=== PATIENT | male | born 1985 | race Caucasian/White ===

== ENCOUNTER 2017-07-15 21:53 | Emergency (ER) | payer SELFPAY ==
[2017-07-15] MEDS ORDERED: Sodium Chloride 0.9% 10 ML Syringe FLUSH PRN (21:55)
[2017-07-15] MEDS ORDERED: Sodium Chloride 0.9% 2.5 ML Syringe FLUSH PRN (21:55)
[2017-07-15] MEDS ORDERED: Nitroglycerin 0.4 MG Tab.SL SL PRN (22:03)
[2017-07-15] MEDS ORDERED: Aspirin 81 MG Tab.Chew PO ONE (22:03)
--- NOTE | 2017-07-15 22:03 | EDM.PDOC ---
ED HPI GENERAL MEDICAL PROBLEM - General Chief Complaint: Cardiovascular Problem Stated Complaint: CHEST PAIN Time Seen by Provider: 07/15/17 21:54 - History of Present Illness INITIAL COMMENTS - FREE TEXT/NARRATIVE: HISTORY AND PHYSICAL: History of present illness: The patient is a 31-year-old male who follows in our family practice clinic and has no stated medical history and presents with several days of feeling like his heart is racing and chest tightness which has been continuous. Patient says he is able to sleep at night and it does not wake him from sleep but from the moment he wakes up to the moment he goes to bed he feels like his heart is going to fast not skipping beats, and he has tightness. He currently rates the tightness is a 4/10. It does not change with activity and he says he has a dry hacking kind of cough. He's had no fevers no abdominal pain no vomiting or diarrhea no diaphoresis no leg pain or swelling. Patient has elevated blood pressure here on arrival and when I asked him that he says he's never had that before. The patient does not smoke cigarettes nor does he do any drugs but he does state that he drinks 6 beers every night to help him go to sleep. He says he doesn't hydrate very well during the day and he on the go eating a lot of junk and fast foods. Patient has no significant family history for cardiac disease. Please note that on my evaluation the patient is on a heart monitor and his heart rate is in the 70s but when I ask him what he is currently feeling he says he feels like his heart is racing Review of systems: As per history of present illness and below otherwise all systems reviewed and negative. Past medical history: As per history of present illness and as reviewed below otherwise noncontributory. Surgical history: As per history of present illness and as reviewed below otherwise noncontributory. Social history: No reported history of drug or alcohol abuse. Family history: As per history of present illness and as reviewed below otherwise noncontributory. Physical exam: Gen.: Well-developed well-nourished male who is nontoxic and overweight and vital signs of the note by me. Patient does seem somewhat anxious on my evaluation and does ramble with his speech a bit but he is able to focus and answer questions. HEENT: Atraumatic, normocephalic, pupils reactive, negative for conjunctival pallor or scleral icterus, mucous membranes tacky, throat clear, neck supple, nontender, trachea midline. Lungs: Clear to auscultation, breath sounds equal bilaterally, chest nontender. No worker breathing or sensory muscle use no wheezing or stridor Heart: S1S2, regular, negative for clicks, rubs, or JVD. My evaluation the patient's heart rate is in the 70s although he tells me on my examination that he feels like his heart is going fast Abdomen: Soft, nondistended, nontender. Negative for masses or hepatosplenomegaly. NABS Pelvis: Stable nontender. Genitourinary: Deferred. Rectal: Deferred. Extremities: Atraumatic, negative for cords or calf pain. Neurovascular unremarkable. No pedal edema or leg asymmetry Neuro: Awake, alert, oriented. Cranial nerves II through XII unremarkable. Cerebellum unremarkable. Motor and sensory unremarkable throughout. Exam nonfocal. The patient does exhibit some tremulousness Skin: Normal turgor no evidence of any overt rashes or lesions and there is no diaphoresis Diagnostics: EKG CBC CMP INR troponin TSH chest x-ray magnesium level UA UDS Therapeutics: IV O2 monitor IV fluids aspirin sublingual nitroglycerin Ativan nitroglycerin paste topically 2220: Chest pain is completely gone after one sublingual nitroglycerin and patient is much calmer after the Ativan. We'll place Nitropaste and we will continue to monitor the patient's testing results Patient has been pain-free since he has been here and he says he doesn't feel as anxious. I reviewed all testing results with him and have offered him observation admission as it is unclear if this was truly a cardiac event or just anxiety. The patient is refusing admission at this time and he is awake alert and competent. I told him that he needs to follow-up with Dr. Tee in the clinic and he needs to avoid drinking beer at night. He understands the risks involved with refusing admission and accepts them. Impression: Palpitations and chest pain, ACS versus anxiety, refusing admission History of daily alcohol use Definitive disposition and diagnosis pending all the above. - Related Data Allergies Allergy/AdvReac Type Severity Reaction Status Date / Time Penicillins Allergy Cannot Verified 07/15/17 22:09 Remember Home Meds: Home Meds . [No Known Home Meds] 07/05/16 [History] Past Medical History Psychiatric History: Reports: Anxiety Social & Family History - Family History Family Medical History: Noncontributory - Tobacco Use Smoking Status *Q: Never Smoker Second Hand Smoke Exposure: No - Caffeine Use Caffeine Use: Reports: Energy Drinks, Soda Caffeine Use Comment: 3/day - Recreational Drug Use Recreational Drug Use: No ED ROS GENERAL - Review of Systems Review Of Systems: ROS reveals no pertinent complaints other than HPI. ED EXAM, GENERAL - Physical Exam Exam: See Below (See dictation) Course - Vital Signs Last Recorded V/S: Last Vital Signs Temp 37.1 C 07/15/17 22:00 Pulse 90 07/15/17 23:12 Resp 22 H 07/15/17 22:32 BP 132/86 07/15/17 23:12 Pulse Ox 96 07/15/17 23:12 - Orders/Labs/Meds Orders: Active Orders 24 hr Category Date Time Status Cardiac Monitoring [RC] . DIRECTED Care 07/15/17 21:55 Active EKG Documentation Completion [RC] STAT Care 07/15/17 21:55 Active Oxygen Therapy, ED [RC] ASDIRECTED Care 07/15/17 21:55 Active Pulse Oximetry [RC] ASDIRECTED Care 07/15/17 21:55 Active Chest 1V Frontal [CR] Stat Exams 07/15/17 21:55 Taken Nitroglycerin [Nitrostat] Med 07/15/17 22:03 Active 0.4 mg SL Q5M PRN Sodium Chloride 0.9% [Saline Flush] Med 07/15/17 21:55 Active 10 ml FLUSH ASDIRECTED PRN Sodium Chloride 0.9% [Saline Flush] Med 07/15/17 21:55 Active 2.5 ml FLUSH ASDIRECTED PRN Saline Lock Insert [OM.PC] Stat Oth 07/15/17 21:55 Ordered Medication Orders Nitroglycerin (Nitrostat) 0.4 mg SL Q5M PRN PRN Reason: Chest Pain Last Admin: 07/15/17 22:18 Dose: 0.4 mg Sodium Chloride (Saline Flush) 10 ml FLUSH ASDIRECTED PRN PRN Reason: Keep Vein Open Sodium Chloride (Saline Flush) 2.5 ml FLUSH ASDIRECTED PRN PRN Reason: Keep Vein Open Labs: Laboratory Tests 07/15/17 07/15/17 07/15/17 Range/Units 22:13 22:13 22:13 WBC 7.78 (4.0-11.0) K/uL RBC 5.01 (4.50-5.90) M/uL Hgb 16.5 (13.0-17.0) g/dL Hct 47.0 (38.0-50.0) % MCV 93.8 (80.0-98.0) fL MCH 32.9 H (27.0-32.0) pg MCHC 35.1 (31.0-37.0) g/dL RDW Std Deviation 44.0 (28.0-62.0) fl RDW Coeff of Sina 13 (11.0-15.0) % Plt Count 225 (150-400) K/uL MPV 9.60 (7.40-12.00) fL Neut % (Auto) 75.5 (48.0-80.0) % Lymph % (Auto) 15.6 L (16.0-40.0) % [place] % (Auto) 8.0 (0.0-15.0) % Eos % (Auto) 0.3 (0.0-7.0) % Baso % (Auto) 0.6 (0.0-1.5) % Neut # (Auto) 5.9 H (1.4-5.7) K/uL Lymph # (Auto) 1.2 (0.6-2.4) K/uL [place] # (Auto) 0.6 (0.0-0.8) K/uL Eos # (Auto) 0.0 (0.0-0.7) K/uL Baso # (Auto) 0.1 (0.0-0.1) K/uL Nucleated RBC % 0.0 /100WBC Nucleated RBCs # 0 K/uL INR 1.25 Sodium 137 (136-146) mmol/L Potassium 3.5 (3.5-5.1) mmol/L Chloride 103 (98-110) mmol/L Carbon Dioxide 22 (21-31) mmol/L BUN 3 L (6.0-23.0) mg/dL Creatinine 0.8 (0.6-1.5) mg/dL Est Cr Clr Drug Dosing 149.81 mL/min Estimated GFR (MDRD) > 60.0 ml/min Glucose 116 H (60-110) mg/dL Calcium 9.3 (8.8-10.8) mg/dL Magnesium (1.5-2.3) mEq/L Total Bilirubin 0.9 (0.1-1.5) mg/dL AST 88 H (5-40) IU/L ALT 91 H (8-54) IU/L Alkaline Phosphatase 92 (40-150) Troponin I < 0.10 (0.0-0.29) NG/ML Total Protein 8.8 H (6.0-8.0) g/dL Albumin 4.4 (3.5-5.0) g/dL Globulin 4.4 H (2.0-3.5) g/dL Albumin/Globulin Ratio 1.0 L (1.3-2.8) TSH 3rd Generation 1.71 (0.47-5.0) uIU/mL Urine Color Urine Appearance Urine pH (5.0-8.0) Ur Specific [place] (1.001-1.035) Urine Protein (NEGATIVE) mg/dL Urine Glucose (UA) (NEGATIVE) mg/dL Urine Ketones (NEGATIVE) mg/dL Urine Occult Blood (NEGATIVE) Urine Nitrite (NEGATIVE) Urine Bilirubin (NEGATIVE) Urine Ictotest Urine Urobilinogen (<2.0) EU/dL Ur Leukocyte Esterase (NEGATIVE) Urine RBC (0-2/HPF) Urine WBC (0-5/HPF) Ur Epithelial Cells (NONE-FEW) Urine Bacteria (NEGATIVE) Urine Opiates Screen (NEGATIVE) Ur Oxycodone Screen (NEGATIVE) Urine Methadone Screen (NEGATIVE) Ur Barbiturates Screen (NEGATIVE) Ur Phencyclidine Scrn (NEGATIVE) Ur Amphetamine Screen (NEGATIVE) U Methamphetamines Scrn (NEGATIVE) U Benzodiazepines Scrn (NEGATIVE) U Cocaine Metab Screen (NEGATIVE) U Marijuana (THC) Screen (NEGATIVE) 07/15/17 07/15/17 07/15/17 Range/Units 22:13 23:20 23:20 WBC (4.0-11.0) K/uL RBC (4.50-5.90) M/uL Hgb (13.0-17.0) g/dL Hct (38.0-50.0) % MCV (80.0-98.0) fL MCH (27.0-32.0) pg MCHC (31.0-37.0) g/dL RDW Std Deviation (28.0-62.0) fl RDW Coeff of Sina (11.0-15.0) % Plt Count (150-400) K/uL MPV (7.40-12.00) fL Neut % (Auto) (48.0-80.0) % Lymph % (Auto) (16.0-40.0) % [place] % (Auto) (0.0-15.0) % Eos % (Auto) (0.0-7.0) % Baso % (Auto) (0.0-1.5) % Neut # (Auto) (1.4-5.7) K/uL Lymph # (Auto) (0.6-2.4) K/uL [place] # (Auto) (0.0-0.8) K/uL Eos # (Auto) (0.0-0.7) K/uL Baso # (Auto) (0.0-0.1) K/uL Nucleated RBC % /100WBC Nucleated RBCs # K/uL INR Sodium (136-146) mmol/L Potassium (3.5-5.1) mmol/L Chloride (98-110) mmol/L Carbon Dioxide (21-31) mmol/L BUN (6.0-23.0) mg/dL Creatinine (0.6-1.5) mg/dL Est Cr Clr Drug Dosing mL/min Estimated GFR (MDRD) ml/min Glucose (60-110) mg/dL Calcium (8.8-10.8) mg/dL Magnesium 1.5 (1.5-2.3) mEq/L Total Bilirubin (0.1-1.5) mg/dL AST (5-40) IU/L ALT (8-54) IU/L Alkaline Phosphatase (40-150) Troponin I (0.0-0.29) NG/ML Total Protein (6.0-8.0) g/dL Albumin (3.5-5.0) g/dL Globulin (2.0-3.5) g/dL Albumin/Globulin Ratio (1.3-2.8) TSH 3rd Generation (0.47-5.0) uIU/mL Urine Color DARK YELLOW Urine Appearance CLEAR Urine pH 6.5 (5.0-8.0) Ur Specific [place] 1.020 (1.001-1.035) Urine Protein NEGATIVE (NEGATIVE) mg/dL Urine Glucose (UA) NEGATIVE (NEGATIVE) mg/dL Urine Ketones TRACE H (NEGATIVE) mg/dL Urine Occult Blood TRACE-INTACT (NEGATIVE) Urine Nitrite NEGATIVE (NEGATIVE) Urine Bilirubin SMALL H (NEGATIVE) Urine Ictotest NEGATIVE Urine Urobilinogen 0.2 (<2.0) EU/dL Ur Leukocyte Esterase NEGATIVE (NEGATIVE) Urine RBC 0-1 (0-2/HPF) Urine WBC 0-1 (0-5/HPF) Ur Epithelial Cells RARE (NONE-FEW) Urine Bacteria RARE (NEGATIVE) Urine Opiates Screen NEGATIVE (NEGATIVE) Ur Oxycodone Screen NEGATIVE (NEGATIVE) Urine Methadone Screen NEGATIVE (NEGATIVE) Ur Barbiturates Screen NEGATIVE (NEGATIVE) Ur Phencyclidine Scrn NEGATIVE (NEGATIVE) Ur Amphetamine Screen NEGATIVE (NEGATIVE) U Methamphetamines Scrn NEGATIVE (NEGATIVE) U Benzodiazepines Scrn NEGATIVE (NEGATIVE) U Cocaine Metab Screen NEGATIVE (NEGATIVE) U Marijuana (THC) Screen NEGATIVE (NEGATIVE) Meds: Medications Generic Name Dose Route Start Last Admin Trade Name Freq PRN Reason Stop Dose Admin Nitroglycerin 0.4 mg 07/15/17 22:03 07/15/17 22:18 Nitrostat SL 0.4 mg Q5M PRN Administration Chest Pain Sodium Chloride 10 ml 07/15/17 21:55 Saline Flush FLUSH ASDIRECTED PRN Keep Vein Open Sodium Chloride 2.5 ml 07/15/17 21:55 Saline Flush FLUSH ASDIRECTED PRN Keep Vein Open Discontinued Medications Generic Name Dose Route Start Last Admin Trade Name Freq PRN Reason Stop Dose Admin Aspirin 324 mg 07/15/17 22:03 07/15/17 22:15 Aspirin PO 07/15/17 22:04 324 mg ONETIME ONE Administration Sodium Chloride 1,000 mls @ 999 mls/hr 07/15/17 22:07 07/15/17 22:19 Normal Saline IV 07/15/17 23:07 999 mls/hr STAT ONE Administration Lorazepam 1 mg 07/15/17 22:08 07/15/17 22:17 Ativan IVPUSH 07/15/17 22:09 1 mg ONETIME ONE Administration Nitroglycerin 0.5 gm 07/15/17 22:25 07/15/17 22:30 Nitro-Bid 2% TOP 07/15/17 22:26 0.5 gm ONETIME ONE Administration Departure - Departure Time of Disposition: 23:59 Disposition: Home, Self-Care 01 Condition: Good Clinical Impression: Palpitations Chest pain Qualifiers: Chest pain type: unspecified Qualified Code(s): R07.9 - Chest pain, unspecified Referrals: PCP,None [Primary Care Provider] - Forms: ED Department Discharge Additional Instructions: The following information is given to patients seen in the emergency department who are being discharged to home. This information is to outline your options for follow-up care. We provide all patients seen in our emergency department with a follow-up referral. The need for follow-up, as well as the timing and circumstances, are variable depending upon the specifics of your emergency department visit. If you don't have a primary care physician on staff, we will provide you with a referral. We always advise you to contact your personal physician following an emergency department visit to inform them of the circumstance of the visit and for follow-up with them and/or the need for any referrals to a consulting specialist. The emergency department will also refer you to a specialist when appropriate. This referral assures that you have the opportunity for followup care with a specialist. All of these measure are taken in an effort to provide you with optimal care, which includes your followup. Under all circumstances we always encourage you to contact your private physician who remains a resource for coordinating your care. When calling for followup care, please make the office aware that this follow-up is from your recent emergency room visit. If for any reason you are refused follow-up, please contact the [facility] emergency department at and ask to speak to the emergency department charge nurse. [facility] Primary care- Internal Medicine and Family [address] [address] Please push hydration and avoid drinking beer. Please try to reduce stressors in her life. Please call and follow-up with Dr. Hiro Tee in the clinic next week and return here as needed and as discussed. - My Orders Last 24 Hours: My Active Orders 02/09/18 21:55 Cardiac Monitoring [RC] . DIRECTED EKG Documentation Completion [RC] STAT Oxygen Therapy, ED [RC] ASDIRECTED Pulse Oximetry [RC] ASDIRECTED Chest 1V Frontal [CR] Stat Sodium Chloride 0.9% [Saline Flush] 10 ml FLUSH ASDIRECTED PRN Sodium Chloride 0.9% [Saline Flush] 2.5 ml FLUSH ASDIRECTED PRN Saline Lock Insert [OM.PC] Stat 07/15/17 22:03 Nitroglycerin [Nitrostat] 0.4 mg SL Q5M PRN - Assessment/Plan Last 24 Hours: My Active Orders 07/15/17 21:55 Cardiac Monitoring [RC] . DIRECTED EKG Documentation Completion [RC] STAT Oxygen Therapy, ED [RC] ASDIRECTED Pulse Oximetry [RC] ASDIRECTED Chest 1V Frontal [CR] Stat Sodium Chloride 0.9% [Saline Flush] 10 ml FLUSH ASDIRECTED PRN Sodium Chloride 0.9% [Saline Flush] 2.5 ml FLUSH ASDIRECTED PRN Saline Lock Insert [OM.PC] Stat 07/15/17 22:03 Nitroglycerin [Nitrostat] 0.4 mg SL Q5M PRN
[2017-07-15] MEDS ORDERED: Sodium Chloride 0.9% 1,000 ML IV ONE (22:07)
[2017-07-15] MEDS ORDERED: LORazepam 2 MG/ML SDV IVPUSH ONE (22:08)
[2017-07-15] MEDS ORDERED: Nitroglycerin 2% Oint 1 GM UD Packet TOP ONE (22:25)
[2017-07-15 22:44] LABS: CHLORIDE,CL 103 mmol/L (98-110); SODIUM,NA 137 mmol/L (136-146)
[2017-07-16 01:08] VITALS: BP 135/72
--- NOTE | 2017-07-18 10:23 | CR ---
EXAM DATE: 07/15/17 PATIENT'S AGE: 31 Patient: YESSI SHORT Facility: [place], [place] Site . Site : 1985 Study: XRay Chest [id number]/[id number] 10:28:31 PM Ordering Physician: Doctor Ham Final Report: INDICATION: chest discomfort/tightness, palpitations TECHNIQUE: Chest 1 view COMPARISON: None FINDINGS: Cardiovascular and mediastinum: Heart size and vasculature are normal in caliber and appearance. Mediastinum is within normal limits. Lungs and pleural space: No focal consolidation. No sign of pleural effusion. No pneumothorax. Bones and soft tissues: No significant findings. IMPRESSION: No acute cardiopulmonary disease Dictated by Fransisco Toledo MD @ 07/15/2017 10:53:54 PM Dictated by: Fransisco Toledo MD @ 07/15/2017 22:54:00 (Electronic Signature) Report Signed by Proxy. [email or web address]
== END 2017-07-16 00:20 | disposition home or self-care (01) ==
LOC: MW.ED 21:53
DX: R00.2 Palpitations (principal); R07.9 Chest pain, unspecified; Z72.89 Other problems related to lifestyle; Z88.0 Allergy status to penicillin
CPT/HCPCS: 36415; 71045; 80053; 80305; 81001; 83735; 84443; 84484; 85025; 85610; 93005; 96361; 96374; 99285; A9270; J2060; J7040; 99284

== ENCOUNTER 2017-08-03 18:13 | Emergency (ER) | payer SELFPAY ==
[2017-08-03] MEDS ORDERED: LORazepam 1 MG Tab PO ONE (18:52)
--- NOTE | 2017-08-03 18:57 | EDM.PDOC ---
ED HPI GENERAL MEDICAL PROBLEM - General Chief Complaint: Chest Pain Stated Complaint: SHORTNESS OF BREATH Time Seen by Provider: 08/03/17 18:48 Source of Information: Reports: Patient History Limitations: Reports: No Limitations - History of Present Illness INITIAL COMMENTS - FREE TEXT/NARRATIVE: HISTORY AND PHYSICAL: History of present illness: Patient is a 31-year-old male who presents to the emergency room today with complaints of shortness of breath, palpitations and "impending doom". He states over the past 2 weeks he has had the symptoms on and off. Was seen in the emergency room on 07/15/2017 for similar symptoms. He states that a full workup was done on him and everything came back "normal"; was offered admission - he declined. Today while at work he states he started to feel anxious and that "something bad was can happen to me" and the symptoms of shortness of breath and palpitations shortly followed. He states he has not been able to alleviate the symptoms and then presented to the emergency room. Denies any fever, chills, chest pain, abdominal pain, nausea, vomiting or diarrhea/constipation. Has no urinary or bowel symptoms or complaints. Denies any smoking history. No recent history of extensive travel. History of daily alcohol use, usually 6 pack per HS. Review of systems: As per history of present illness and below otherwise all systems reviewed and negative. Past medical history: As per history of present illness and as reviewed below otherwise noncontributory. Surgical history: As per history of present illness and as reviewed below otherwise noncontributory. Social history: No reported history of drug or alcohol abuse. Family history: As per history of present illness and as reviewed below otherwise noncontributory. Physical exam: General: Well-developed and well-nourished 31-year-old male. Appears mildly anxious but in no acute distress. Alert and oriented. HEENT: Atraumatic, normocephalic, pupils reactive, negative for conjunctival pallor or scleral icterus, mucous membranes moist, throat clear, neck supple, nontender, trachea midline. Lungs: Clear to auscultation, breath sounds equal bilaterally, chest nontender. Heart: S1S2, regular rate and rhythm without overt murmur Abdomen: Soft, be's, nondistended, nontender. Negative for masses or hepatosplenomegaly. Negative for costovertebral tenderness. Pelvis: Stable nontender. Genitourinary: Deferred. Rectal: Deferred. Extremities: Atraumatic, moves all extremities per self without difficulty or deficits, negative for cords or calf pain. Neurovascular unremarkable. Neuro: Awake, alert, oriented. Cranial nerves II through XII unremarkable. Cerebellum unremarkable. Motor and sensory unremarkable throughout. Exam nonfocal. Patient is very anxious and pacing in the room. PO Ativan given to alleviate symptoms. CBC, CMP, d-dimer, EKG, CXR are within normal limits. These results were shared with the patient. He states he feels "much better" after receiving the oral Ativan. Did suggest that he follows up with his primary care provider to discuss possible when necessary or daily medication use if his symptoms continue. He is agreeable to plan of care. He denies any questions at this time. Diagnostics: CBC, CMP, troponin, d-dimer, chest x-ray, EKG Therapeutics: Ativan Impression: Anxiety Plan: 1. Labs were normal today. Symptoms appear to be closely followed with anxiety. If you continue to have these symptoms and more frequently, you may want to follow up with your primary care provider to get an "as needed" or daily medication to help alleviate this. May also want to consider a Holter Monitor ( watches your heart rhythm over 48-72 hours) if you continue to have palpitations. 2. Avoid any caffeinated products, coffee, tea, chocolates. Consider stopping alcohol use as these can contribute to your anxiety. 3. Follow up with your primary care provider in the next couple days. Return to the ED as needed and as discussed. Definitive disposition and diagnosis as appropriate pending reevaluation and review of above. Duration: Week(s): Location: Reports: Chest midsternal Pain Score (Numeric/FACES): 2 - Related Data Allergies Allergy/AdvReac Type Severity Reaction Status Date / Time Penicillins Allergy Cannot Verified 08/03/17 18:18 Remember Home Meds: Home Meds Aspirin [Ecotrin] 4 tab PO BID 08/03/17 [History] Past Medical History - Past Health History Medical/Surgical History: Denies Medical/Surgical History Psychiatric History: Reports: Anxiety - Infectious Disease History Infectious Disease History: Reports: Chicken Pox Social & Family History - Family History Family Medical History: Noncontributory - Tobacco Use Smoking Status *Q: Former Smoker Used Tobacco, but Quit: Yes Month Tobacco Last Used: 2014 Second Hand Smoke Exposure: No - Caffeine Use Caffeine Use: Reports: Coffee Caffeine Use Comment: 3/day - Alcohol Use Days Per Week of Alcohol Use: 7 Number of Drinks Per Day: 6 Total Drinks Per Week: 42 - Recreational Drug Use Recreational Drug Use: No ED ROS GENERAL - Review of Systems Review Of Systems: ROS reveals no pertinent complaints other than HPI. ED EXAM, GENERAL - Physical Exam Exam: See Below (See dictation) Course - Vital Signs Last Recorded V/S: Last Vital Signs Temp 98 F 08/03/17 18:19 Pulse 105 H 08/03/17 18:19 Resp 16 08/03/17 18:19 BP 160/101 H 08/03/17 18:19 Pulse Ox 96 08/03/17 18:19 - Orders/Labs/Meds Orders: Active Orders 24 hr Category Date Time Status EKG Documentation Completion [RC] STAT Care 08/03/17 18:35 Active Chest 2V [CR] Stat Exams 08/03/17 18:52 Taken Labs: Laboratory Tests 08/03/17 08/03/17 08/03/17 Range/Units 19:06 19:06 19:06 WBC 9.17 (4.0-11.0) K/uL RBC 5.24 (4.50-5.90) M/uL Hgb 17.5 H (13.0-17.0) g/dL Hct 49.9 (38.0-50.0) % MCV 95.2 (80.0-98.0) fL MCH 33.4 H (27.0-32.0) pg MCHC 35.1 (31.0-37.0) g/dL RDW Std Deviation 46.5 (28.0-62.0) fl RDW Coeff of Sina 13 (11.0-15.0) % Plt Count 202 (150-400) K/uL MPV 9.50 (7.40-12.00) fL Neut % (Auto) 78.2 (48.0-80.0) % Lymph % (Auto) 13.1 L (16.0-40.0) % Orange % (Auto) 7.6 (0.0-15.0) % Eos % (Auto) 0.4 (0.0-7.0) % Baso % (Auto) 0.7 (0.0-1.5) % Neut # (Auto) 7.2 H (1.4-5.7) K/uL Lymph # (Auto) 1.2 (0.6-2.4) K/uL Orange # (Auto) 0.7 (0.0-0.8) K/uL Eos # (Auto) 0.0 (0.0-0.7) K/uL Baso # (Auto) 0.1 (0.0-0.1) K/uL Nucleated RBC % 0.0 /100WBC Nucleated RBCs # 0 K/uL D-Dimer, Quantitative 0.47 (0.0-0.52) mg/LFEU Sodium 138 (136-148) mmol/L Potassium 3.7 (3.5-5.1) mmol/L Chloride 102 (98-107) mmol/L Carbon Dioxide 23.1 (21.0-32.0) mmol/L BUN 6 L (7.0-18.0) mg/dL Creatinine 0.7 L (0.8-1.3) mg/dL Est Cr Clr Drug Dosing 171.21 mL/min Estimated GFR (MDRD) > 60.0 ml/min Glucose 113 H (74-106) mg/dL Calcium 9.3 (8.5-10.1) mg/dL Total Bilirubin 0.6 (0.2-1.0) mg/dL AST 123 H (15-37) U/L ALT 143 H (14-63) U/L Alkaline Phosphatase 95 (46-116) U/L Troponin I < 0.050 (0.000-0.056) ng/mL Total Protein 8.9 H (6.4-8.2) g/dL Albumin 4.1 (3.4-5.0) g/dL Globulin 4.8 H (2.0-3.5) g/dL Albumin/Globulin Ratio 0.9 L (1.3-2.8) Meds: Medications Discontinued Medications Generic Name Dose Route Start Last Admin Trade Name Freq PRN Reason Stop Dose Admin Lorazepam 1 mg 08/03/17 18:52 08/03/17 18:57 Ativan PO 08/03/17 18:53 1 mg ONETIME ONE Administration Departure - Departure Time of Disposition: 20:26 Disposition: Home, Self-Care 01 Clinical Impression: Anxiety, Palpitation Referrals: Hiro Tee MD [Primary Care Provider] - Forms: ED Department Discharge Additional Instructions: My general discharge The following information is given to patients seen in the emergency department who are being discharged to home. This information is to outline your options for follow-up care. We provide all patients seen in our emergency department with a follow-up referral. The need for follow-up, as well as the timing and circumstances, are variable depending upon the specifics of your emergency department visit. If you don't have a primary care physician on staff, we will provide you with a referral. We always advise you to contact your personal physician following an emergency department visit to inform them of the circumstance of the visit and for follow-up with them and/or the need for any referrals to a consulting specialist. The emergency department will also refer you to a specialist when appropriate. This referral assures that you have the opportunity for follow-up care with a specialist. All of these measure are taken in an effort to provide you with optimal care, which includes your follow-up. Under all circumstances we always encourage you to contact your private physician who remains a resource for coordinating your care. When calling for follow-up care, please make the office aware that this follow-up is from your recent emergency room visit. If for any reason you are refused follow-up, please contact the [facility] Emergency Department at and asked to speak to the emergency department charge nurse. [facility] [address] [place] [id number] 1. Symptoms appear to be closely followed with anxiety. If you continue to have these symptoms and more frequently, you may want to follow up with your primary care provider to get an "as needed" or daily medication to help alleviate this. May also want to consider a Holter Monitor (watches your heart rhythm over 48- 72 hours) if you continue to have palpitations. Please have your liver enzymes rechecked in following weeks (stop alcohol use as we discussed). 2. Avoid any caffeinated products, coffee, tea, chocolates. Consider stopping alcohol use as these can contribute to your anxiety. 3. Follow up with your primary care provider in the next couple days. Return to the ED as needed and as discussed. - My Orders Last 24 Hours: My Active Orders 08/03/17 18:52 Chest 2V [CR] Stat - Assessment/Plan Last 24 Hours: My Active Orders 08/03/17 18:52 Chest 2V [CR] Stat
[2017-08-03 19:58] LABS: CHLORIDE,CL 102 mmol/L (98-107); SODIUM,NA 138 mmol/L (136-148)
[2017-08-03 20:32] VITALS: BP 141/104
--- NOTE | 2017-08-04 10:31 | CR ---
EXAM DATE: 08/03/17 PATIENT'S AGE: 31 Patient: YESSI SHORT Facility: [place], [place] Site . Site : 1985 Study: XRay Chest [id number]/28/2018 7:28:00 PM Ordering Physician: Doctor Ham Final Report: HISTORY: Shortness of breath and anxiety. FINDINGS: PA and lateral chest radiographs are compared with July/2017. The cardiac silhouette is normal size. Pulmonary vasculature is free of cephalization. No consolidation, pleural effusion or pneumothorax is seen. Peridiscal spurring is seen within the thoracic spine. IMPRESSION: No acute cardiopulmonary disease. Dictated by Milana Cantrell MD @ 08/03/2017 7:52:18 PM Dictated by: Milana Cantrell MD @ 08/03/2017 19:52:32 (Electronic Signature) Report Signed by Proxy. KAMRON
== END 2017-08-03 20:29 | disposition home or self-care (01) ==
LOC: MW.ED 18:13
DX: F41.9 Anxiety disorder, unspecified (principal); Z88.0 Allergy status to penicillin; Z79.82 Long term (current) use of aspirin; Z87.891 Personal history of nicotine dependence
CPT/HCPCS: 36415; 71046; 80053; 84484; 85025; 85379; 99284; A9270

== ENCOUNTER 2018-10-30 19:47 | Emergency (ER) | payer SELFPAY ==
[2018-10-30] MEDS ORDERED: Diphtheria,Pertussis(Acell),Tetanus Vaccine 0.5 ML Syringe IM ONE (20:02)
--- NOTE | 2018-10-30 20:05 | EDM.PDOC ---
ED HPI GENERAL MEDICAL PROBLEM - General Chief Complaint: Head Injury Stated Complaint: FELL AND HAS A CUT NEAR RIGHT EYEBROW Time Seen by Provider: 10/30/18 20:01 - History of Present Illness INITIAL COMMENTS - FREE TEXT/NARRATIVE: HISTORY AND PHYSICAL: History of present illness: Patient 33-year-old white male presents status post fall hit his head sustaining a laceration above his right eye he denies loss consciousness and no nausea no vomiting no other complaints. Tetanus status to be determined Review of systems: As per history of present illness and below otherwise all systems reviewed and negative. Past medical history: As per history of present illness and as reviewed below otherwise noncontributory. Surgical history: As per history of present illness and as reviewed below otherwise noncontributory. Social history: No reported history of drug or alcohol abuse. Family history: As per history of present illness and as reviewed below otherwise noncontributory. Physical exam: HEENT: Patient has approximate 4 cm moderate depth laceration above his right eye is no step-off no depression good hemostasis, normocephalic, pupils reactive , negative for conjunctival pallor or scleral icterus, mucous membranes moist, throat clear, neck supple, nontender, trachea midline. Lungs: Clear to auscultation, breath sounds equal bilaterally, chest nontender. Heart: S1S2, regular, negative for clicks, rubs, or JVD. Abdomen: Soft, nondistended, nontender. Negative for masses or hepatosplenomegaly. Negative for costovertebral tenderness. Pelvis: Stable nontender. Genitourinary: Deferred. Rectal: Deferred. Extremities: Atraumatic, negative for cords or calf pain. Neurovascular unremarkable. Neuro: Awake, alert, oriented. Cranial nerves II through XII unremarkable. Cerebellum unremarkable. Motor and sensory unremarkable throughout. Exam nonfocal. Diagnostics: Deferred Therapeutics: Patient was anesthetized with 1% lidocaine prepped and draped in sterile manner close with 5-0 absorbable suture bacitracin was applied Impression: Facial laceration Definitive disposition and diagnosis as appropriate pending reevaluation and review of above. no pain Pain Score (Numeric/FACES): 0 - Related Data Allergies Allergy/AdvReac Type Severity Reaction Status Date / Time Penicillins Allergy Cannot Verified 08/03/17 18:18 Remember Home Meds: Home Meds . [No Known Home Meds] 10/30/18 [History] Past Medical History - Past Health History Medical/Surgical History: Denies Medical/Surgical History Respiratory History: Reports: None Gastrointestinal History: Reports: None Genitourinary History: Reports: None Musculoskeletal History: Reports: None Neurological History: Reports: None Psychiatric History: Reports: Anxiety Endocrine/Metabolic History: Reports: None Hematologic History: Reports: None Oncologic (Cancer) History: Reports: None Dermatologic History: Reports: None - Infectious Disease History Infectious Disease History: Reports: Chicken Pox - Past Surgical History Head Surgeries/Procedures: Reports: None Social & Family History - Family History Family Medical History: Noncontributory - Tobacco Use Smoking Status *Q: Current Every Day Smoker Years of Tobacco use: 20 Packs/Tins Daily: 1 - Caffeine Use Caffeine Use: Reports: Coffee Caffeine Use Comment: 3/day - Recreational Drug Use Recreational Drug Use: No ED ROS GENERAL - Review of Systems Review Of Systems: ROS reveals no pertinent complaints other than HPI. ED EXAM, HEAD INJURY - Physical Exam Exam: See Below (The dictation) Course - Vital Signs Last Recorded V/S: Last Vital Signs Temp 37.1 C 10/30/18 19:52 Pulse 101 H 10/30/18 19:52 Resp 18 10/30/18 19:52 BP 136/91 H 10/30/18 19:52 Pulse Ox 94 L 10/30/18 19:52 - Orders/Labs/Meds Meds: Medications Discontinued Medications Generic Name Dose Route Start Last Admin Trade Name Philq PRN Reason Stop Dose Admin Lidocaine HCl 10 ml 10/30/18 19:57 Xylocaine-Mpf 1% INJECT 10/30/18 19:58 ONETIME ONE Departure - Departure Time of Disposition: 20:04 Disposition: Home, Self-Care 01 Condition: Good Clinical Impression: Facial laceration - Discharge Information Referrals: PCP,None [Primary Care Provider] - Additional Instructions: The following information is given to patients seen in the emergency department who are being discharged to home. This information is to outline your options for follow-up care. We provide all patients seen in our emergency department with a follow-up referral. The need for follow-up, as well as the timing and circumstances, are variable depending upon the specifics of your emergency department visit. If you don't have a primary care physician on staff, we will provide you with a referral. We always advise you to contact your personal physician following an emergency department visit to inform them of the circumstance of the visit and for follow-up with them and/or the need for any referrals to a consulting specialist. The emergency department will also refer you to a specialist when appropriate. This referral assures that you have the opportunity for followup care with a specialist. All of these measure are taken in an effort to provide you with optimal care, which includes your followup. Under all circumstances we always encourage you to contact your private physician who remains a resource for coordinating your care. When calling for followup care, please make the office aware that this follow-up is from your recent emergency room visit. If for any reason you are refused follow-up, please contact the [facility] emergency department at and asked to speak to the emergency department charge nurse. Follow-up primary medical doctor return as needed as discussed wound care as directed
[2018-10-30 21:15] VITALS: BP 122/76
== END 2018-10-30 20:35 | disposition home or self-care (01) ==
LOC: MW.ED 19:47
DX: S01.111A Laceration without foreign body of right eyelid and periocular area, initial encounter (principal); F17.210 Nicotine dependence, cigarettes, uncomplicated; Z23 Encounter for immunization; Z88.0 Allergy status to penicillin; W18.39XA Other fall on same level, initial encounter
CPT/HCPCS: 12013; 90471; 90715; 99283; J2001

== ENCOUNTER 2019-03-14 23:49 | Emergency (ER) | payer SELFPAY ==
[2019-03-15 00:08] VITALS: BP 154/104; PULSE 112
--- NOTE | 2019-03-15 00:18 | EDM.PDOC ---
ED HPI GENERAL MEDICAL PROBLEM - General Chief Complaint: Lower Extremity Injury/Pain Stated Complaint: ULCER/BLEEDING LEFT FOOT Time Seen by Provider: 03/15/19 00:02 - History of Present Illness INITIAL COMMENTS - FREE TEXT/NARRATIVE: HISTORY AND PHYSICAL: History of present illness: The patient is a 33-year-old male who was unsure of his last tetanus but according to the computer had it in October of this year and presents with concerns about left foot swelling redness and a recurrence of a chronic ulcer. According to the patient he followed with our card cutter helper Dr. Jose and last saw him about 3 months ago for debridement of an ulcer at his left foot and he says that it was doing well so he stopped following up. He said that today he noticed that the dorsal aspect of his foot was swollen and red and that the old wound looked more angry and that he should be seen and evaluated. He did not contact the card cutter helper and he denies any systemic complaints of fevers chills and has no specific pain in his foot. He denies any new trauma to the area and says that the redness is not going up his leg and he has no other discomfort or issues with the remainder of the left lower extremity. The patient says he has been tested for diabetes in the past with respect to this foot ulcer and he has never been positive. He has been eating and drinking normally. The patient also told me on my initial interview with him that he is very anxious and he is having an anxiety attack because he thought that he should come here to the emergency department but his employer at [employer] was mad at him and he is also worried about his ill and he is asking where the bill for today's visit will be going. He told me all of this twice on my interview of him and of his concerns about his anxiety about his health and about his employer. Review of systems: As per history of present illness and below otherwise all systems reviewed and negative. Past medical history: As per history of present illness and as reviewed below otherwise noncontributory. Surgical history: As per history of present illness and as reviewed below otherwise noncontributory. Social history: No reported history of drug or alcohol abuse. Family history: As per history of present illness and as reviewed below otherwise noncontributory. Physical exam: General: Well-developed well-nourished man who is nontoxic and overall weight mildly vital signs were noted by me. As I enter the room the patient immediately starts to tell me that he is having an anxiety attack and that he is concerned because his boss is mad that he is here in the ED. He appears very anxious on my evaluation. HEENT: Atraumatic, normocephalic, negative for conjunctival pallor or scleral icterus, mucous membranes moist, throat clear, neck supple, nontender, trachea midline. Lungs: Clear to auscultation, breath sounds equal bilaterally, chest nontender. Heart: S1S2, regular rhythm and sightly tachycardic rate on my evaluation, negative for clicks, rubs, or JVD. Abdomen: Soft, nondistended, nontender. Negative for masses or hepatosplenomegaly. NABS Pelvis: Stable nontender. Genitourinary: Deferred. Rectal: Deferred. Extremities: Atraumatic and full range of motion of all extremities with the exception of the left foot. There is no tenderness with palpation of the toes and the foot on the left side but there is diffuse soft tissue swelling originating from the toes up to the ankle level with warmth and erythema which is ill-defined but does not streak up the leg. At the lateral aspect of the left foot along the fifth metatarsal area there is an ill-defined area of white callus like tissue which is somewhat hardened and excoriated and moist but not draining and there is chronic skin changes seen here consistent with the patient 's history of an ulcer in this location although there is no evidence of a bleeding or exposed tissue here. Between the fourth and fifth toes there is a deep indentation with chronic skin changes and some excoriation seen but again there is no fluctuance drainage or tenderness. There is no bony tenderness defects or deformities in the toes or foot nor is there crepitus throughout the foot on palpation. Dorsalis pedis is intact and strong per Doppler as with the soft tissue changes it is difficult to palpate but I can appreciated. Neurovascular unremarkable. Neuro: Awake, alert, oriented. Cranial nerves II through XII unremarkable. Cerebellum unremarkable. Motor and sensory unremarkable throughout. Exam nonfocal. It should be noted that the patient's shoes are completely worn and rolling apart and smell significantly of moisture and yeast like smell. Diagnostics: CBC CMP lactic acid x-ray of the left foot Therapeutics: Tdap is up-to-date per computer, the area of the erythema and skin changes were marked by me., Postop shoe, nonstick dressing Impression: Chronic left foot ulcer with exacerbation and surrounding cellulitis Definitive disposition and diagnosis as appropriate pending reevaluation and review of above. left foot Pain Score (Numeric/FACES): 1 - Related Data Allergies Allergy/AdvReac Type Severity Reaction Status Date / Time Penicillins Allergy Cannot Verified 03/15/19 00:02 Remember Home Meds: Home Meds . [No Known Home Meds] 10/30/18 [History] Past Medical History - Past Health History Medical/Surgical History: Denies Medical/Surgical History Respiratory History: Reports: None Gastrointestinal History: Reports: None Genitourinary History: Reports: None Musculoskeletal History: Reports: None Neurological History: Reports: None Psychiatric History: Reports: Anxiety Endocrine/Metabolic History: Reports: None Hematologic History: Reports: None Oncologic (Cancer) History: Reports: None Dermatologic History: Reports: None - Infectious Disease History Infectious Disease History: Reports: Chicken Pox - Past Surgical History Head Surgeries/Procedures: Reports: None Social & Family History - Family History Family Medical History: Noncontributory - Caffeine Use Caffeine Use: Reports: Coffee Caffeine Use Comment: 3/day Review of Systems - Review of Systems Review Of Systems: ROS reveals no pertinent complaints other than HPI. ED EXAM, GENERAL - Physical Exam Exam: See Below (See dictation) Course - Vital Signs Last Recorded V/S: Last Vital Signs Temp 36.4 C 03/15/19 00:00 Pulse 112 H 03/15/19 00:00 Resp 18 03/15/19 00:00 BP 154/104 H 03/15/19 00:00 Pulse Ox 97 03/15/19 00:00 - Orders/Labs/Meds Orders: Active Orders 24 hr Category Date Time Status DME for Discharge [COMM] Stat Oth 03/15/19 00:50 Ordered Labs: Laboratory Tests 03/15/19 03/15/19 03/15/19 Range/Units 00:25 00:25 00:25 WBC 9.30 (4.0-11.0) K/uL RBC 4.27 L (4.50-5.90) M/uL Hgb 14.8 (13.0-17.0) g/dL Hct 42.3 (38.0-50.0) % MCV 99.1 H (80.0-98.0) fL MCH 34.7 H (27.0-32.0) pg MCHC 35.0 (31.0-37.0) g/dL RDW Std Deviation 43.9 (28.0-62.0) fl RDW Coeff of Sina 12 (11.0-15.0) % Plt Count 173 (150-400) K/uL MPV 9.50 (7.40-12.00) fL Neut % (Auto) 70.6 (48.0-80.0) % Lymph % (Auto) 15.9 L (16.0-40.0) % Collin % (Auto) 11.3 (0.0-15.0) % Eos % (Auto) 1.3 (0.0-7.0) % Baso % (Auto) 0.9 (0.0-1.5) % Neut # (Auto) 6.6 H (1.4-5.7) K/uL Lymph # (Auto) 1.5 (0.6-2.4) K/uL Collin # (Auto) 1.1 H (0.0-0.8) K/uL Eos # (Auto) 0.1 (0.0-0.7) K/uL Baso # (Auto) 0.1 (0.0-0.1) K/uL Lactate 1.3 (0.20-2.00) mmol/L Sodium 139 (136-148) mmol/L Potassium 3.4 L (3.5-5.1) mmol/L Chloride 102 (98-107) mmol/L Carbon Dioxide 25.9 (21.0-32.0) mmol/L BUN 7 (7.0-18.0) mg/dL Creatinine 0.7 L (0.8-1.3) mg/dL Est Cr Clr Drug Dosing 172.88 mL/min Estimated GFR (MDRD) > 60.0 ml/min Glucose 123 H (74-106) mg/dL Calcium 8.8 (8.5-10.1) mg/dL Total Bilirubin 1.0 (0.2-1.0) mg/dL AST 284 H (15-37) IU/L ALT 197 H (14-63) IU/L Alkaline Phosphatase 108 (46-116) U/L Total Protein 8.4 H (6.4-8.2) g/dL Albumin 3.3 L (3.4-5.0) g/dL Globulin 5.1 H (2.6-4.0) g/dL Albumin/Globulin Ratio 0.7 L (0.9-1.6) Departure - Departure Time of Disposition: 01:03 Disposition: Home, Self-Care 01 Condition: Good Clinical Impression: Cellulitis of foot Chronic ulcer of left foot Qualifiers: Non-pressure ulcer stage: unspecified non-pressure ulcer stage Qualified Code(s ): L97.529 - Non-pressure chronic ulcer of other part of left foot with unspecified severity - Discharge Information Referrals: PCP,None [Primary Care Provider] - Forms: ED Department Discharge Additional Instructions: The following information is given to patients seen in the emergency department who are being discharged to home. This information is to outline your options for follow-up care. We provide all patients seen in our emergency department with a follow-up referral. The need for follow-up, as well as the timing and circumstances, are variable depending upon the specifics of your emergency department visit. If you don't have a primary care physician on staff, we will provide you with a referral. We always advise you to contact your personal physician following an emergency department visit to inform them of the circumstance of the visit and for follow-up with them and/or the need for any referrals to a consulting specialist. The emergency department will also refer you to a specialist when appropriate. This referral assures that you have the opportunity for followup care with a specialist. All of these measure are taken in an effort to provide you with optimal care, which includes your followup. Under all circumstances we always encourage you to contact your private physician who remains a resource for coordinating your care. When calling for followup care, please make the office aware that this follow-up is from your recent emergency room visit. If for any reason you are refused follow-up, please contact the [facility] emergency department at and ask to speak to the emergency department charge nurse. Dr Nikki Jose [address] [place] [id number] [facility] Primary care- Internal Medicine and Family [place] [id number] [place] [id number] Please call the card cutter helper in the morning and schedule a follow-up appointment in the next 1-2 days for reevaluation and further care. Ice and elevate the area as much as possible and wear the postop shoe and a clean sock at all times. Please cleanse the area with mild soap and water twice a day. Take antibiotics as prescribed to you, Bactrim DS, from [facility]. Return to ER as needed and as discussed You may use [id number] medications for pain management as you choose. Please also connect with one of our primary care physicians to recheck your blood work for your mildly elevated liver function tests and avoid alcohol and Tylenol based products until you're seen. - My Orders Last 24 Hours: My Active Orders 03/15/19 00:50 DME for Discharge [COMM] Stat - Assessment/Plan Last 24 Hours: My Active Orders 03/15/19 00:50 DME for Discharge [COMM] Stat
--- NOTE | 2019-03-15 00:47 | CR ---
INDICATION: Ulcer on outer side of left foot, patient just noticed today along with redness, swelling and odor from site TECHNIQUE: Foot radiograph 3 views left COMPARISON: 04/12/2018 FINDINGS: Bone: A corticated ossicle is seen along the lateral calcaneus measuring 8 mm which may represent an accessory ossicle. No evidence of osteomyelitis is seen. Joint: The visualized hindfoot, midfoot, and forefoot joints are unremarkable in appearance. No significant ankle effusion is seen. Soft tissue: Soft tissue ulceration is seen along the lateral foot near the 5th metatarsophalangeal joint. No radiopaque foreign bodies are seen. IMPRESSIONS: 1. No acute osseous injuries or abnormalities are noted. 2. No evidence of osteomyelitis is seen. If there is a high clinical index of suspicion, further evaluation with contrast-enhanced MRI or dual-isotope bone scan is recommended, given their higher sensitivities. Dictated by Yaniv Lima MD @ 03/15/2019 12:46:09 AM Dictated by: Yaniv Lima MD @ 03/15/2019 00:46:15 (Electronically Signed)
[2019-03-15 00:51] LABS: BLOOD UREA NITROGEN,BUN 7 mg/dL (7.0-18.0); CARBON DIOXIDE,CO2 25.9 mmol/L (21.0-32.0); CHLORIDE,CL 102 mmol/L (98-107); GLUCOSE RANDOM 123 mg/dL (74-106); POTASSIUM,K 3.4 mmol/L (3.5-5.1); SODIUM,NA 139 mmol/L (136-148)
== END 2019-03-15 01:18 | disposition home or self-care (01) ==
LOC: MW.ED 23:49
DX: L97.529 Non-pressure chronic ulcer of other part of left foot with unspecified severity (principal); L03.116 Cellulitis of left lower limb; Z88.0 Allergy status to penicillin
CPT/HCPCS: 36415; 73630-26-LT; 73630-LT; 80053; 83605; 85025; 99283-25